=== PATIENT | male | born 1955 | race Caucasian/White ===

== ENCOUNTER 2024-11-20 16:54 | Emergency (ER) | payer MEDICARE ==
[~2024-11-20] VITALS: Ht 170.2 cm; Wt 78.0 kg
[2024-11-20] MEDS ORDERED: DICLOFENAC SODIUM2 % TD (19:36)
[2024-11-20 20:15] VITALS: BP 129/79
== END 2024-11-20 20:15 | disposition home or self-care (01) ==
LOC: ED 16:54
DX: M25.562 Pain in left knee (principal); M17.12 Unilateral primary osteoarthritis, left knee